=== PATIENT | female | born 1995 | race Caucasian/White ===

== ENCOUNTER 2020-01-13 01:24 | Emergency (ER) | payer MEDICAID ==
[~2020-01-13] VITALS: Ht 154.9 cm; Wt 64.0 kg
[2020-01-13] MEDS ORDERED: IBUPROFEN 600MG TABLET PO NR (04:10)
[2020-01-13] MEDS ORDERED: PENICILLIN G BENZATHINE 1,200,000 UNITS/2ML SYR IM ONE (04:15)
[2020-01-13 04:54] VITALS: BP 142/83
== END 2020-01-13 04:57 | disposition home or self-care (01) ==
LOC: ER 01:52
DX: K04.7 Periapical abscess without sinus (principal); J45.909 Unspecified asthma, uncomplicated; E28.2 Polycystic ovarian syndrome
CPT/HCPCS: 99283

== ENCOUNTER 2021-06-07 19:00 | Emergency (ER) | payer MEDICAID ==
[~2021-06-07] VITALS: Ht 154.9 cm; Wt 104.0 kg
[2021-06-07] MEDS ORDERED: ACETAMINOPHEN 325MG TABLET PO ONE (19:45)
[2021-06-07 21:47] VITALS: BP 118/66
== END 2021-06-07 21:49 | disposition home or self-care (01) ==
LOC: ER 19:00
DX: M25.531 Pain in right wrist (principal); E28.2 Polycystic ovarian syndrome; J45.909 Unspecified asthma, uncomplicated; Z90.49 Acquired absence of other specified parts of digestive tract; W10.8XXA Fall (on) (from) other stairs and steps, initial encounter; Y93.89 Activity, other specified; Y92.018 Other place in single-family (private) house as the place of occurrence of the external cause
CPT/HCPCS: 29125; 73090; 73100; 73120; 99284

== ENCOUNTER 2021-12-10 23:24 | Emergency (ER) | payer MEDICAID ==
[~2021-12-10] VITALS: Ht 162.6 cm; Wt 100.0 kg
[2021-12-10] MEDS ORDERED: ACTIVATED CHARCOAL 50 G/240 ML TUBE PO ONE (23:45)
[2021-12-11 01:04] LABS: HEMATOCRIT. 46.3 % (36.0-48.0); HEMOGLOBIN. 15.6 g/dL (12.0-16.0); MEAN CORPUSCULAR HEMOGLOBIN 31.4 pg (28.0-32.0); MEAN CORPUSCULAR VOLUME 93.2 fL (81.0-99.0); MEAN PLATELET VOLUME 8.4 fl (7.4-10.4); PLATELET 408 x1000/uL (130-400); RED BLOOD CELL COUNT 4.97 mill/uL (4.2-5.4); RED CELL DISTRIBUTION WIDTH 13.5 % (11.6-14.6)
[2021-12-11 01:07] LABS: CHLORIDE 110 mEq/L (98-107)
[2021-12-11 01:16] LABS: ETHANOL BLOOD 183 mg/dL
[2021-12-11 01:27] LABS: HCG SCREEN NEGATIVE
[2021-12-11 04:35] LABS: PLATELET ESTIMATE NORMAL
[2021-12-11 06:13] LABS: CHLORIDE 112 mEq/L (98-107)
[2021-12-11] MEDS: SERTRALINE HCL 50MG TABLET PO SCH (09:15)
[2021-12-12 08:39] VITALS: BP 128/93
[2021-12-12] MEDS: SERTRALINE HCL 50MG TABLET PO SCH (09:15)
== END 2021-12-12 11:40 | disposition home or self-care (01) ==
LOC: ER 23:24
DX: R45.851 Suicidal ideations (principal); T39.1X1A Poisoning by 4-Aminophenol derivatives, accidental (unintentional), initial encounter; Y92.89 Other specified places as the place of occurrence of the external cause; J45.909 Unspecified asthma, uncomplicated; E11.9 Type 2 diabetes mellitus without complications; Z87.19 Personal history of other diseases of the digestive system; Z90.49 Acquired absence of other specified parts of digestive tract
CPT/HCPCS: 36415; 80053; 80305; 80307; 80320; 80329; 84450; 84460; 84703; 85025; 99291; G0480

== ENCOUNTER 2022-02-10 00:10 | Emergency (ER) | payer MEDICAID ==
[~2022-02-10] VITALS: Ht 162.6 cm; Wt 100.0 kg
[2022-02-10] MEDS ORDERED: NALOXONE HCL 0.4 MG/ML 1ML VIAL IV PRN (00:45)
[2022-02-10] MEDS ORDERED: MIDAZOLAM HCL 2 MG/2 ML VIAL IM ONE (01:30)
[2022-02-10 01:55] LABS: BASOPHILS % 0.2 % (0.0-2.0); EOSINOPHILS % 0.3 % (0.0-5.0); HEMATOCRIT. 41.3 % (36.0-48.0); HEMOGLOBIN. 14.1 g/dL (12.0-16.0); LYMPHOCYTES % 24.4 % (20.0-50.0); MEAN CORPUSCULAR HEMOGLOBIN 31.6 pg (28.0-32.0); MEAN CORPUSCULAR VOLUME 92.1 fL (81.0-99.0); MEAN PLATELET VOLUME 8.2 fl (7.4-10.4); MONOCYTES % 4.2 % (2.0-8.0); NEUTROPHILS % 70.9 % (40.0-76.0); PLATELET 262 x1000/uL (130-400); RED BLOOD CELL COUNT 4.48 mill/uL (4.2-5.4); RED CELL DISTRIBUTION WIDTH 13.4 % (11.6-14.6)
[2022-02-10 02:02] LABS: CLARITY URINE CLEAR (CLEAR); COLOR URINE YELLOW (YELLOW); KETONES URINE TRACE (NEGATIVE); LEUKOCYTE ESTERASE URINE NEGATIVE (NEGATIVE); NITRITE URINE NEGATIVE (NEGATIVE); OCCULT BLOOD URINE NEGATIVE (NEGATIVE); PH URINE 5.5 (4.5-8.0); PROTEIN URINE NEGATIVE (NEGATIVE); SPECIFIC GRAVITY URINE 1.013 (1.005-1.030); UROBILINOGEN URINE 0.2 E.U./dL (0.2-1.0)
[2022-02-10 02:04] LABS: CHLORIDE 109 mEq/L (98-107)
[2022-02-10 02:18] LABS: *AMPHETAMINES SCREEN URINE NEGATIVE (NEGATIVE); *BARBITURATES SCREEN URINE NEGATIVE (NEGATIVE); *BENZODIAZEPINES SCREEN URINE NEGATIVE (NEGATIVE); *COCAINE SCREEN URINE NEGATIVE (NEGATIVE); CANNABINOID URINE SCREEN NEGATIVE (NEGATIVE); METHADONE URINE SCREEN NEGATIVE (NEGATIVE); OPIATES URINE SCREEN NEGATIVE (NEGATIVE); PHENCYCLIDINE URINE SCREEN NEGATIVE (NEGATIVE)
[2022-02-10 02:43] LABS: ETHANOL BLOOD 299 mg/dL
[2022-02-10] MEDS ORDERED: POTASSIUM CHLORIDE 20MEQ TABLET SR PO NR (03:15)
[2022-02-10 07:50] VITALS: BP 118/72
== END 2022-02-10 08:07 | disposition home or self-care (01) ==
LOC: ER 00:10
DX: T51.0X2A Toxic effect of ethanol, intentional self-harm, initial encounter (principal); Y90.8 Blood alcohol level of 240 mg/100 ml or more; Z91.51 Personal history of suicidal behavior; Y92.018 Other place in single-family (private) house as the place of occurrence of the external cause
CPT/HCPCS: 36415; 80053; 80305; 80307; 80320; 80329; 81003; 84443; 85025; 93005; 96372; 99285; J2250; G0480